=== PATIENT | female | born 1950 | race Asian ===

== ENCOUNTER → 2019-03-11 | Day surgery (SDC) | payer MEDICARE, MEDICAID ==
[~2019-03-11] VITALS: Ht 152.4 cm; Wt 38.6 kg
[~2019-03-11] MED LIST: ALBUTEROL SULFATE 2.5 MG/0.5 ML NEB SOLUTION NEB ONE; BENZOCAINE 20% 50 MCG/SPRAY 57 GM TP ONE; FentaNYL CITRATE-PF 100 MCG/2 ML VIAL ONE; LIDOCAINE 2% 5 ML JELLY TP ONE; LIDOCAINE 4% 50 ML SOLUTION TP ONE; MIDAZOLAM HCL 2 MG/2 ML VIAL ONE; MethylPREDNISolone SOD SUCC 125 MG/2 ML VIAL IVP ONE; MethylPREDNISolone SOD SUCC 125 MG/2 ML VIAL ONE; OXYGEN THERAPY IH SCH; SODIUM CHLORIDE 0.9% 1,000 ML IV ONE
== END | disposition home or self-care (01) ==
LOC: SURGERY 06:05
PROVIDERS: ATTEND Internal Medicine Critical Care Medicine
DX: R05 Cough (principal); J47.9 Bronchiectasis, uncomplicated; R91.1 Solitary pulmonary nodule; B37.0 Candidal stomatitis; J98.4 Other disorders of lung
CPT/HCPCS: 31623; 31624; 71045; 87015; 87070; 87101; 87205; 87206; 87220; 88108; 88312; J2250; J2930; J3010; J7030